=== PATIENT | female | born 1980 | race Caucasian/White ===

== ENCOUNTER → 2020-10-01 17:47 | Outpatient (BNVA) | payer SELFPAY | PROVIDERS: Family Provider Nurse Practitioner Family; PCP Registered Nurse | DX: R05 Cough (principal); J45.901 Unspecified asthma with (acute) exacerbation; R19.7 Diarrhea, unspecified | CPT/HCPCS: 71046 ==

== ENCOUNTER → 2020-10-12 10:36 | Outpatient (BNVA) | payer SELFPAY | PROVIDERS: Family Provider Nurse Practitioner Family; PCP Registered Nurse; Visit Provider Registered Nurse | DX: J45.901 Unspecified asthma with (acute) exacerbation (principal); R19.7 Diarrhea, unspecified | CPT/HCPCS: 87506 ==

== ENCOUNTER → 2021-08-15 14:06 | Outpatient (BNVA) | payer BC, SELFPAY | PROVIDERS: Family Provider Nurse Practitioner Family; PCP Registered Nurse; Visit Provider Internal Medicine Cardiovascular Disease | DX: I47.1 Supraventricular tachycardia (principal); R00.0 Tachycardia, unspecified; Z98.890 Other specified postprocedural states | CPT/HCPCS: 80053; 80061; 83735; 84439; 84443; 84481; 85025 ==

== ENCOUNTER 2023-02-06 09:50 | Outpatient (CLI) | payer OTHER, SELFPAY ==
--- NOTE | 2023-02-06 11:05 | MM_ITS ---
WS: [id number] BILATERAL SCREENING DIGITAL TOMOSYNTHESIS MAMMOGRAM WITH CAD HISTORY: SCREEN COMPARISON: None available. Bilateral CC and MLO views with tomosynthesis and synthetic mammography submitted. Computer aided det ection analyzed. Breast composition: There are scattered areas of fibroglandular density. No suspicious masses, microc alcifications or architectural distortion. IMPRESSION: MM/[place] [id number] BI-RADS: 1-Negative FOLLOW UP: 1 Year Follow-up
== END 2023-02-06 09:51 | disposition home or self-care (01) ==
PROVIDERS: Family Provider Nurse Practitioner Family; PCP Registered Nurse; Visit Provider Family Medicine
DX: Z12.31 Encounter for screening mammogram for malignant neoplasm of breast (principal)
CPT/HCPCS: 77063; 77067

== ENCOUNTER → 2023-04-30 11:25 | Outpatient (BNVA) | payer OTHER, SELFPAY | PROVIDERS: Family Provider Nurse Practitioner Family; PCP Registered Nurse; Visit Provider Registered Nurse | DX: J45.909 Unspecified asthma, uncomplicated (principal); F41.1 Generalized anxiety disorder; F41.0 Panic disorder [episodic paroxysmal anxiety]; F43.0 Acute stress reaction; J45.40 Moderate persistent asthma, uncomplicated | CPT/HCPCS: 80053; 83036; 84443; 85025 ==

== ENCOUNTER → 2023-10-26 12:04 | Outpatient (BNVA) | payer OTHER, SELFPAY | PROVIDERS: Family Provider Nurse Practitioner Family; Visit Provider Nurse Practitioner Family | DX: R50.9 Fever, unspecified (principal); J06.9 Acute upper respiratory infection, unspecified | CPT/HCPCS: 87400 ==

== ENCOUNTER → 2023-12-24 15:07 | Outpatient (BNVA) | payer OTHER, SELFPAY | PROVIDERS: Family Provider Nurse Practitioner Family; PCP Registered Nurse; Visit Provider Internal Medicine Cardiovascular Disease | DX: I45.10 Unspecified right bundle-branch block (principal); R07.9 Chest pain, unspecified | CPT/HCPCS: 93005 ==

== ENCOUNTER → 2024-01-18 13:32 | Outpatient (BNVA) | payer OTHER, SELFPAY | PROVIDERS: Family Provider Nurse Practitioner Family; PCP Registered Nurse; Visit Provider Registered Nurse | DX: I10 Essential (primary) hypertension (principal) | CPT/HCPCS: 85025 ==

== ENCOUNTER → 2024-01-21 08:23 | Outpatient (BNVA) | payer OTHER, SELFPAY | PROVIDERS: Family Provider Nurse Practitioner Family; PCP Registered Nurse; Visit Provider Registered Nurse | DX: I10 Essential (primary) hypertension (principal) | CPT/HCPCS: 80053; 80061; 84443 ==

== ENCOUNTER 2024-07-25 09:43 | Outpatient (CLI) | payer OTHER, SELFPAY ==
--- NOTE | 2024-07-25 10:00 | USCV_ITS ---
Malou Silverman Age: 44 Gender: F : 1980 Exam Date: 07/25/2024 10:01 Ordering Phys: Reny Beltran Technologist: Exam Location: [facility] – [place] Indication: hx of heart ablation BP: 130 / 80 HR: 74 Rhythm: Sinus Technical Quality: Adequate MEASUREMENTS (Male / Female) Normal Values 2D ECHO LV Diastolic Diameter PLAX 4.3 cm 4.2 - 5.9 / 3.9 - 5.3 cm IVS Diastolic Thickness 1.2 cm 0.6 - 1.0 / 0.6 - 0.9 cm IVS Systolic Thickness 1.9 cm LVPW Diastolic Thickness 1.3 cm 0.6 - 1.0 / 0.6 - 0.9 cm LVPW Systolic Thickness 1.8 cm LVOT Diameter 2.0 cm LV Ejection Fraction 2D Teich 67.3 % LV Ejection Fraction MOD 4C 55.9 % LV Ejection Fraction MOD 2C 71.6 % LV Ejection Fraction 2C AL 70.3 % LA Diameter 3.4 cm RA Systolic Volume 4C AL 48.4 ml RA Systolic Volume 4C MOD 47.5 ml Aorta at Sinotubular Diameter 2.5 cm IVC Diameter 2.0 cm M-MODE LA Ao Ratio MM 1.2 AV Cusp Separation MM 2.0 cm DOPPLER AV Peak Velocity 112.0 cm/s LVOT Peak Velocity 112.0 cm/s AV Area Cont Eq vti 3.6 cm squared AV Area Cont Eq pk 3.2 cm squared MV Peak Velocity 108.0 cm/s MV Area PHT 4.3 cm squared Mitral E to A Ratio 1.3 TV Peak Velocity 218.0 cm/s TR Peak Velocity 240.0 cm/s TR Peak Gradient 23.0 mmHg TV Peak E Velocity 70.0 cm/s PV Peak Velocity 95.0 cm/s FINDINGS Left Ventricle Normal left ventricular size, systolic function and wall thickness, with no regional wall motion abnormalities. Left ventricular ejection fraction is estimated at 60 %. Grade II/IV diastolic dysfunction, moderately elevated filling pressures. Right Ventricle The right ventricle is normal in size and function. Right Atrium The right atrium is normal in size. Left Atrium The left atrium is normal in size. Mitral Valve Mildly thickened mitral valve. No mitral valve stenosis. Mild mitral valve regurgitation. Aortic Valve Moderate aortic valve calcification. No aortic valve stenosis. Trace aortic valve regurgitation. Tricuspid Valve Structurally normal tricuspid valve without significant stenosis or regurgitation. Pulmonary artery systolic pressure is normal. Pulmonic Valve Structurally normal pulmonic valve without significant stenosis. There is no pulmonic regurgitation. Pericardium Normal pericardium without effusion. Aorta Normal ascending aorta dimension. IVC The inferior vena cava appears normal. CONCLUSIONS Normal left ventricular size, systolic function and wall thickness, with no regional wall motion abnormalities. Left ventricular ejection fraction is estimated at 60 %. Grade II/IV diastolic dysfunction, moderately elevated filling pressures. Mildly thickened mitral valve. No mitral valve stenosis. Mild mitral valve regurgitation. There is no pericardial effusion. Right atrial pressure is around 5 mm of mercury. Karthik Pacheco MD (Electronically Signed) Final Date: 11 August 2024 15:39 S
== END 2024-07-25 09:44 | disposition home or self-care (01) ==
PROVIDERS: PCP Registered Nurse; Visit Provider Nurse Practitioner Family
DX: I47.10 Supraventricular tachycardia, unspecified (principal); Q25.0 Patent ductus arteriosus; I47.11 Inappropriate sinus tachycardia, so stated; R93.1 Abnormal findings on diagnostic imaging of heart and coronary circulation; I34.0 Nonrheumatic mitral (valve) insufficiency; I35.8 Other nonrheumatic aortic valve disorders
CPT/HCPCS: 93306

== ENCOUNTER → 2024-11-08 11:27 | Outpatient (BNVA) | payer OTHER, SELFPAY | PROVIDERS: PCP Registered Nurse; Visit Provider Orthopaedic Surgery | DX: M79.641 Pain in right hand (principal); M65.311 Trigger thumb, right thumb | CPT/HCPCS: 73130 ==

== ENCOUNTER 2024-12-16 07:04 | Day surgery (SDC) | payer OTHER, SELFPAY ==
[2024-12-16] VITALS (9 sets, daily range): BP systolic 108–155; BP diastolic 63–102; PULSE 73–95; RESP 14–20; TEMP 36.1–36.9; O2SAT 94–99
--- NOTE | 2024-12-16 07:47 | W.PM.OPSUD ---
Surgery/Procedure H&P Update DATE OF PROCEDURE: December 16, 2024 DATE H&P PERFORMED: 12/14/24 H&P UPDATE INFORMATION: I have reviewed H&P completed within last 30 days, I have examined patient prior to procedure, No changes to prior documentation and Risks and benefits of the procedure reviewed PREOP DIAGNOSIS: Left trimalleolar fracture PLANNED PROCEDURE: Operation Date: 12/16/24 08:35 Proposed Procedures p ORIF Ankle ORIF Trimalleolar Fracture(Left) - Cyrus Lugo DPM s ORIF Ankle Syndesmosis(Left) - Cyrus Lugo DPM
--- NOTE | 2024-12-16 07:50 | SUR.PREOP ---
Dr. Hummel at bedside performing block to left lower ext.
[2024-12-16 07:51] LABS: OR HCG Qualitative Urine Negative (Negative)
--- NOTE | 2024-12-16 07:58 | P.ANESASSM_ITS ---
Pre-Anesthetic Assessment Height/Weight: Height 1.63 m Weight 86.183 kg Temp Pulse Resp BP Pulse Ox O2 Del Method 98.4 F 79 18 134/87 96 Room Air 12/16/24 07:40 12/16/24 07:49 12/16/24 07:49 12/16/24 07:49 12/16/24 07:49 12/16/24 07:49 Preop Diagnosis: Left trimalleolar fracture Operation Date: 12/16/24 08:35 Proposed Procedures p ORIF Ankle ORIF Trimalleolar Fracture(Left) - Cyrus Lugo DPM s ORIF Ankle Syndesmosis(Left) - Cyrus Lugo DPM Familial anesthetic complications: None Was Beta Arely taken within 24 hours: N/A Was Clonidine taken within 24 hours: N/A Last intake: Intake Last Liquid Date 12/15/24 Last Liquid Time 22:00 Last Solid Date 12/15/24 Last Solid Time 17:00 Social No alcohol and No tobacco Exam alert, oriented x 3, clear to auscultation bilaterally and regular rate & rhythm Airway Mallampati: Class I CV/HEM 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, cleared Anesthetic Plan ASA status: 3 Anesthesia: General and Regional (specify below) Risk of > 500 ml blood loss (7ml/kg in children): No Medications/Allergies Home Medications ?Medication ?Instructions ?Recorded ?Confirmed ?Last Taken ?Type alprazolam 0.5 mg tablet 0.5 mg PO BID 30 days #50 ta bs 08/09/24 12/15/24 12/16/24 Rx metoprolol tartrate 100 mg tablet 100 mg PO BID PRN ta chycardia #120 11/24/24 12/15/24 12/16/24 Rx tabs Wheelchair with elevated leg rest #1 ea 12/14/2412/15 Unknown Rx budesonide-formoterol HFA 160 160 inh inhalation PRN P rn clinical 12/15/24 12/15/24 Unknown History mcg-4.5 mcg/actuation aerosol Symptoms inhaler cyclobenzaprine 10 mg tablet 10 mg PO PRN PRN Muscle S pasm 12/15/24 12/15/24 Unknown History oxycodone-acetaminophen 10 mg-325 1 tab PO Q6H PRN nestor n 7 days #28 12/16/24 Unknown Rx mg tablet (Percocet) tabs Allergies Allergy/AdvReac Type Severity Reaction Status Date / Time amlodipine Allergy Intermediate swelling Verified 12/14/24 14:30 hydrocodone Allergy ALGY-Rash Verified 12/15/24 12:00 sertraline (From Zoloft) AdvReac Intermediate Gave bad Verified 12/14/24 14:30 thoughts. [facility] Anesthesia Medical History (Updated 12/15/24 @ 10:22 by Cyrus Lugo DPM) Psychiatric care WPW (Qnxej-Qftkybjld-Zewwl syndrome) PDA (patent ductus arteriosus) Asthma Paroxysmal SVT (supraventricular tachycardia) Tachycardia Surgical History Hx of tubal ligation History of cardiac radiofrequency ablation (RFA) 2016 Family History Family/Other Psychiatric illness Fathers side Other Diabetes Thyroid disease Social History Smoking and tobacco/nicotine status: current every day tobacco/nicotine user (vape) cigarettes Packs smoked per day: 0.5 Years cigarettes smoked: 20 Alcohol intake: never Substance/Drug Use: never Adopted: No Caregiver/support person: No Lives independently: No Household members: spouse and children Current occupational status: employed Sexually active: Yes Do you think of yourself as: Straight/Heterosexual Current gender identity: Female Data Anesthesia Cardiac Studies: Echocardiogram 07/25/24 Cardiac Event Monitor 08/15/21 Anesthesia Procedures Nerve Block Nerve Block 1: Main Anesthesia: general anesthesia Time Out Performed: Yes Consent: requested by attending/covering physician, from patient, from other, risks and benefits reviewed and patient agrees to proceed Nerve block location: popliteal (L) Anesthesia monitors applied: pulse oximetry, EKG, BP cuff and oxygen Nerve block position: supine Anesthetic Used: ropivicaine 0.5% (30 ml) and with decadron (4 mg) Ultrasound used to: recognize landmarks Nerve Stimulator Used?: No Interscalene/Femoral BLK: 4 stimuplex 21 g needle used for position and inplane approach, visualize local anesthetic spread and no vascular puncture identified Injection: neg aspiration of heme Patient Tolerated Procedure: well Complications: none
[2024-12-16] MEDS: ceFAZolin 2,000 mg SDV 2000 MG IVP (07:59)
[2024-12-16] MEDS: BUPivacaine 0.5% INJ 10 mL INJECTION (08:41)
--- NOTE | 2024-12-16 09:41 | P.OP_ITS ---
Operative Report Date of procedure: December 16, 2024 Pre-op diagnosis: Closed trimalleolar fracture of left ankle, initial encounter S82.852A Fracture type: closedInjury of left ankle, initial encounter S99.912A Encounter type: initial encounterFall (on) (from) unspecified stairs and steps, initial encounter W10.9XXA Post-op diagnosis: Closed trimalleolar fracture of left ankle, initial encounter S82.852A Fracture type: closedInjury of left ankle, initial encounter S99.912A Encounter type: initial encounterFall (on) (from) unspecified stairs and steps, initial encounter W10.9XXA Procedure done: Open reduction internal fixation left trimalleolar fracture. CPT code 19420 Open reduction internal fixation left ankle syndesmosis. CPT code 03239 Implants: [place] anatomic fibular plate with 3.5 mm locking screws, 3 mm interfrag screw, paragon Reflex syndesmotic repair, [place] 4 mm cannulated screws, 2-0 Vicryl, 3-0 Vicryl, skin murali, 1 cc of DBM provided by Isaak WATSON. Surgeon: Cyrus Lugo DPM Cardiology Teacher: Elina Estimated blood loss: 10 mL 76 minutes IV fluids: See intraoperative documentation Complications: None Brief History: Patient examined evaluated, findings and treatment options discussed with patient at length. She sustained a dislocated left trimalleolar fracture 12/13/2024 from slipping and falling on wet steps outside of her house. Fracture was reduced and splinted at [facility]. She is here for surgical consultation. I reviewed at length with the patient, the risks, potential complications, benefits, alternatives, expectations, and typical outcomes associated with the surgery. The risks and potential complications were explained in detail, including but not limited to infection, wound dehiscence or soft tissue complications, bleeding and hematoma, chronic edema, neuritis or nerve damage producing numbness or chronic pain, CRPS, failure to relieve pain or worsening pain, thick / painful / unsightly scar, limited motion / stiffness, malposition, delayed union, malunion, or nonunion, fracture, reaction to implants, anesthetic complications, venous thromboembolism, and deformity recurrence. I discussed the notion of no regrets with the patient as it pertains to complications and outcomes. The patient seemed to understand the nature of the proposed care and required convalescence. They asked appropriate questions, answered to their satisfaction. They are aware no guarantees can be made as to a satisfactory outcome and they understand there may be other possible unforeseen complications or outcomes not listed here that will be treated accordingly if they arise. There were no written or implied guarantees given to the patient. They gave informed consent to proceed. Procedure: Under mild sedation the patient was brought to the operating room and remained on the gurney in supine position. A timeout was performed. Anesthesia was then administered by the anesthesia service. Of note left popliteal block performed preoperatively per anesthesia. Well-padded pneumatic tourniquet applied to the left high calf. The left lower extremity was scrubbed, prepped and draped util izing normal aseptic technique. Left foot and ankle were then exanguinated with Esmarch bandage and tourniquet inflated to 250 mmHg. Attention was directed to the lateral aspect of the left ankle where lateral malleolus was palpated. Directly over the distal fibula a linear longitudinal incision was made through skin with a #15 blade with dissection carried down through subcutaneous tissue to the layer periosteum utilizing a sharp and blunt technique. Care was taken to retract and preserve neurovascular and tendinous structures. All bleeders were ligated and cauterized as necessary. Periosteal incision was performed and the Kenny Camarena C fracture was appreciated this was distracted and curettaged of hematoma and reduced followed by fixation with interfrag screw with [place] 28 3 mm screw with excellent bony apposition and compression noted. Additional anatomic plate utilized laterally at the distal fibula with 3.5 mm locking screws with excellent bony apposition and compression noted with the fibula restored to length and neutral in the frontal and transverse planes. Cotton test yielded interrupted syndesmosis which was fixated utilizing [place] reflux syndesmotic repair tricortical the suture anchor was secured within the anatomic plate and was driven parallel to the ankle joint with excellent apposition and reduction of the syndesmosis with smooth range of motion appreciated intraoperatively without further diastases after fixation. Medial malleolus was fixated with parallel 4 mm screws with excellent bony apposition and compression noted not violating the ankle mortise. The incision was irrigated with copious amounts of sterile skin solution. Final C arm fluoroscopy confirmed excellent placement of hardware both medial and laterally as well as the syndesmosis with congruent ankle mortise, no hardware violated the ankle joint. Smooth range of motion appreciated intraoperatively with 5 degrees dorsiflexion and 30 degrees plantarflexion. After final irrigation incision medially closed with 4-0 nylon. Laterally was closed in a layered fashion with periosteum reapproximated with 2-0 Vicryl, subcutaneous tissue with 3-0 Vicryl and skin with murali. Incisions were dressed with Xeroform, 4 x 4 gauze, Kerlix followed by application of a well- padded multilayer compressive posterior splint. Tourniquet was deflated and a prompt hyperemic response is noted to the distal digits of the left foot. Patient tolerated the procedure and anesthesia well and was transferred to the PACU with vital signs stable and vascular status intact. Following a period of postoperative monitoring she will be discharged home without home care instructions and scheduled follow-up.
--- NOTE | 2024-12-16 09:41 | P.BOP_ITS ---
Date of Procedure: 07/10/23 Surgeon: Cyrus Lugo DPM Funeral Planning Counselor(s): Suzie Jay Procedure(s) performed: Open reduction internal fixation left trimalleolar fracture and left syndesmosis. Findings of the procedure(s): None Estimated blood loss: 10 mL Specimen(s) removed: None Post-operative diagnosis: Left trimalleolar fracture with syndesmotic disruption.
--- NOTE | 2024-12-16 10:45 | ANE.PACU2 ---
Inpatient post-anesthesia follow up: Airway intact: Yes Vital signs: Temperature 97.0 F Pulse Rate 76 Respiratory Rate 20 Blood Pressure 128/87 Pulse Oximetry 97 Oxygen Delivery Me thod Room Air Oxygen Flow Rate Fraction of Inspir ed Oxygen Hydration adequate: Yes Nausea and vomiting: No Pain level: 1 Mental status: Baseline
== END 2024-12-16 10:39 | disposition home or self-care (01) ==
PROVIDERS: Anesthesiology; PCP Registered Nurse; Visit Provider Podiatrist Foot & Ankle Surgery
PROC: (CPT 27822; principal; 2024-12-16 08:25)
PROC: (CPT 27822; 2024-12-16 08:25)
DX: S82.852A Displaced trimalleolar fracture of left lower leg, initial encounter for closed fracture (principal); S99.912A Unspecified injury of left ankle, initial encounter; W10.9XXA Fall (on) (from) unspecified stairs and steps, initial encounter; I45.6 Pre-excitation syndrome; J45.909 Unspecified asthma, uncomplicated; I47.10 Supraventricular tachycardia, unspecified; F17.290 Nicotine dependence, other tobacco product, uncomplicated; Q25.0 Patent ductus arteriosus
CPT/HCPCS: 27822; 27829; 76000; 81025; C1713; J0690; J1100; J2250; J2704; J2795; J3010; J3490; J7030; J9999

== ENCOUNTER → 2024-12-29 13:58 | Outpatient (BNVA) | payer OTHER, SELFPAY | PROVIDERS: PCP Registered Nurse; Visit Provider Podiatrist Foot & Ankle Surgery | DX: Z98.890 Other specified postprocedural states (principal); S82.852D Displaced trimalleolar fracture of left lower leg, subsequent encounter for closed fracture with routine healing; X58.XXXD Exposure to other specified factors, subsequent encounter | CPT/HCPCS: 73610 ==

== ENCOUNTER 2024-12-30 08:14 | Outpatient (CLI) | payer OTHER, SELFPAY | END 2024-12-30 08:15 | disposition home or self-care (01) | LOC: SPT 08:15 | PROVIDERS: PCP Registered Nurse; Visit Provider Podiatrist Foot & Ankle Surgery | DX: Z47.89 Encounter for other orthopedic aftercare (principal); Z98.890 Other specified postprocedural states; Z87.81 Personal history of (healed) traumatic fracture | CPT/HCPCS: L4361 ==

== ENCOUNTER → 2025-01-26 14:15 | Outpatient (BNVA) | payer OTHER, SELFPAY | PROVIDERS: PCP Registered Nurse; Visit Provider Podiatrist Foot & Ankle Surgery | DX: Z98.890 Other specified postprocedural states (principal); S82.852D Displaced trimalleolar fracture of left lower leg, subsequent encounter for closed fracture with routine healing; X58.XXXD Exposure to other specified factors, subsequent encounter | CPT/HCPCS: 73630 ==

== ENCOUNTER 2025-01-26 15:01 | Outpatient (CLI) | payer OTHER, SELFPAY | END 2025-01-26 15:02 | disposition home or self-care (01) | LOC: SPT 15:02 | PROVIDERS: PCP Registered Nurse; Visit Provider Podiatrist Foot & Ankle Surgery | DX: Z47.89 Encounter for other orthopedic aftercare (principal); Z98.890 Other specified postprocedural states; Z87.81 Personal history of (healed) traumatic fracture | CPT/HCPCS: L1902 ==

== ENCOUNTER → 2025-02-23 13:53 | Outpatient (BNVA) | payer OTHER, SELFPAY | PROVIDERS: PCP Registered Nurse; Visit Provider Podiatrist Foot & Ankle Surgery | DX: Z98.890 Other specified postprocedural states (principal); S82.852D Displaced trimalleolar fracture of left lower leg, subsequent encounter for closed fracture with routine healing; X58.XXXD Exposure to other specified factors, subsequent encounter | CPT/HCPCS: 73610 ==

== ENCOUNTER 2025-03-09 15:08 | Outpatient (RCR) | payer OTHER, SELFPAY | END 2025-03-26 23:59 | disposition home or self-care (01) | LOC: SPT 15:08 | PROVIDERS: PCP Registered Nurse; Visit Provider Podiatrist Foot & Ankle Surgery | DX: Z47.89 Encounter for other orthopedic aftercare (principal) | CPT/HCPCS: 97110; 97161 ==

== ENCOUNTER 2025-03-27 05:00 | Outpatient (RCR) | payer OTHER, SELFPAY | END 2025-04-26 23:59 | disposition home or self-care (01) | LOC: SPT 05:00 | PROVIDERS: PCP Registered Nurse; Visit Provider Podiatrist Foot & Ankle Surgery | DX: Z47.89 Encounter for other orthopedic aftercare (principal) | CPT/HCPCS: 97110 ==